=== PATIENT | female | born 1950 | race Caucasian/White ===

== ENCOUNTER 2020-07-29 05:54 | Emergency (ER) | payer MEDICARE ==
[~2020-07-29] VITALS: Ht 154.9 cm; Wt 68.6 kg
[~2020-07-29 05:54] MED LIST: PROC5TAB56 PO
[2020-07-29] MEDS ORDERED: ondansetron/PF 4mg/2ml inj IV ONE (06:15)
[2020-07-29] MEDS ORDERED: normal saline 1000ml 1,000 ML IV ONE (06:15)
[2020-07-29 07:22] LABS: BASOPHILS % (AUTO) 0.3 % (0-1); EOSINOPHILS # (AUTO) 0.2 X10'3 (0-0.9); EOSINOPHILS % (AUTO) 2.1 % (0-6); HEMATOCRIT 42.4 % (35.0-45.0); LYMPHOCYTES # (AUTO) 1.9 X10'3 (1.1-4.8); LYMPHOCYTES % (AUTO) 24.4 % (21-51); MEAN CORPUSCULAR HEMOGLOBIN 33.3 PG (27.0-31.0); MEAN CORPUSCULAR HGB CONC 33.1 g/dL (33.0-36.5); MEAN CORPUSCULAR VOLUME 100.8 FL (78-98); MEAN PLATELET VOLUME 8.5 FL (7.4-10.4); MONOCYTES # (AUTO) 0.8 X10'3 (0-0.9); MONOCYTES % (AUTO) 9.8 % (2-12); NEUTROPHILS % (AUTO) 63.4 % (42-75); PLATELET COUNT 298 X10'3 (140-440); RED BLOOD COUNT 4.21 X10'6 (4.20-5.60); RED CELL DISTRIBUTION WIDTH 13.7 % (11.5-14.5)
[2020-07-29 07:31] LABS: ALANINE AMINOTRANSFERASE 23 U/L (12-78); ALBUMIN 3.7 G/DL (3.4-5.0); ALBUMIN/GLOBULIN RATIO 1.2 (1.1-1.5); ALKALINE PHOSPHATASE 62 IU/L (46-116); ANION GAP 11 (8-16); ASPARTATE AMINO TRANSFERASE 17 U/L (10-37); BILIRUBIN,TOTAL 0.3 MG/DL (0.1-1.0); BLOOD UREA NITROGEN 13 MG/DL (7-18); BUN/CREATININE RATIO 14.3 (6.6-38.0); CALCIUM 9.1 MG/DL (8.5-10.1); CHLORIDE 103 MMOL/L (99-107); CREATININE 0.91 MG/DL (0.40-0.90); GLUCOSE 106 MG/DL (70-104); SODIUM 143 MMOL/L (135-145); TOTAL CARBON DIOXIDE 29.4 MMOL/L (24-32); TOTAL PROTEIN 6.8 G/DL (6.4-8.2); eGFR 61 ML/MIN
[2020-07-29 07:35] LABS: ETHANOL < 0.010 GM/DL (0.0-0.010); TROPONIN I < 0.04 NG/ML (0.0-0.05)
[2020-07-29] MEDS ORDERED: potassium Cl 20 mEq SR tablet PO STA (07:43)
[2020-07-29] MEDS ORDERED: PANT-47 PO (08:36)
[2020-07-29] MEDS ORDERED: POTA20TA19 PO (08:36)
[2020-07-29] MEDS ORDERED: PROM12.512 PO (08:36)
[2020-07-29] MEDS ORDERED: famotidine/PF 10 mg/ml inj IV ONE (08:40)
[2020-07-29] MEDS ORDERED: pantoprazole 40 MG vial IV ONE (08:40)
[2020-07-29 09:31] VITALS: BP 156/84
== END 2020-07-29 09:42 | disposition home or self-care (01) ==
LOC: ER 05:54
DX: R11.10 Vomiting, unspecified (principal); R42 Dizziness and giddiness; F41.9 Anxiety disorder, unspecified; Z72.89 Other problems related to lifestyle; Z79.899 Other long term (current) drug therapy
CPT/HCPCS: 36415; 80053; 80320; 84484; 85025; 96361; 96374; 96375; 99284; C9113; J2405; J3490; J7030

== ENCOUNTER 2020-10-28 08:15 | Emergency (ER) | payer MEDICARE ==
[~2020-10-28] VITALS: Ht 154.9 cm; Wt 69.5 kg
[~2020-10-28 08:15] MED LIST changes: +PANT-47 PO; +PROM12.512 PO
[2020-10-28 09:16] LABS: BASOPHILS % (AUTO) 0.2 % (0-1); EOSINOPHILS # (AUTO) 0.1 X10'3 (0-0.9); EOSINOPHILS % (AUTO) 0.4 % (0-6); HEMATOCRIT 42.1 % (35.0-45.0); LYMPHOCYTES # (AUTO) 2.5 X10'3 (1.1-4.8); LYMPHOCYTES % (AUTO) 17.4 % (21-51); MEAN CORPUSCULAR HEMOGLOBIN 33.6 PG (27.0-31.0); MEAN CORPUSCULAR HGB CONC 33.2 g/dL (33.0-36.5); MEAN PLATELET VOLUME 7.4 FL (7.4-10.4); MONOCYTES # (AUTO) 0.8 X10'3 (0-0.9); MONOCYTES % (AUTO) 5.5 % (2-12); NEUTROPHILS # (AUTO) 11.2 X10'3 (1.8-7.7); NEUTROPHILS % (AUTO) 76.5 % (42-75); PLATELET COUNT 458 X10'3 (140-440); RED BLOOD COUNT 4.17 X10'6 (4.20-5.60); RED CELL DISTRIBUTION WIDTH 13.7 % (11.5-14.5); WHITE BLOOD COUNT 14.6 X10'3 (4.5-11.0)
[2020-10-28 09:25] LABS: CLARITY,URINE CLOUDY (Clear); COLOR,URINE YELLOW (Yellow); GLUCOSE, URINE NEGATIVE (Neg); KETONES,URINE NEGATIVE (Neg); LEUKOCYTE ESTERASE ,URINE TRACE (Neg); NITRITES, URINE NEGATIVE (Neg); OCCULT BLOOD,URINE NEGATIVE (Neg); PH,URINE 5.5 (4.8-8.0); PROTEIN,URINE NEGATIVE (Neg); UA COLLECTION TYPE CLN CATCH MIDSTREAM; UROBILINOGEN,URINE 0.2 E.U/dL (0.2-1.0)
[2020-10-28 09:45] LABS: MUCUS STRANDS MANY /LPF (Neg); SQUAMOUS EPITHELIAL CELL,UR MANY /LPF (FEW)
[2020-10-28 09:46] LABS: BACTERIA,URINE 1+ /HPF (Neg)
[2020-10-28 09:47] LABS: RBC,URINE 0-2 /HPF (0-2)
[2020-10-28 09:54] LABS: ALANINE AMINOTRANSFERASE 20 U/L (12-78); ALBUMIN 4.3 G/DL (3.4-5.0); ALBUMIN/GLOBULIN RATIO 1.3 (1.1-1.5); ALKALINE PHOSPHATASE 64 IU/L (46-116); AMYLASE 43 U/L (25-115); ANION GAP 15 (8-16); ASPARTATE AMINO TRANSFERASE 18 U/L (10-37); BILIRUBIN,TOTAL 0.5 MG/DL (0.1-1.0); BLOOD UREA NITROGEN 11 MG/DL (7-18); BUN/CREATININE RATIO 9.4 (6.6-38.0); CALCIUM 9.8 MG/DL (8.5-10.1); CHLORIDE 100 MMOL/L (99-107); CREATININE 1.17 MG/DL (0.40-0.90); GLUCOSE 113 MG/DL (70-104); LIPASE 162 U/L (73-393); SODIUM 137 MMOL/L (135-145); TOTAL CARBON DIOXIDE 22.4 MMOL/L (24-32); TOTAL PROTEIN 7.6 G/DL (6.4-8.2); eGFR 46 ML/MIN
[2020-10-28] MEDS ORDERED: pantoprazole 40 MG vial IV ONE (09:55)
[2020-10-28] MEDS ORDERED: metoclopramide 5 mg/ml inj IV ONE (09:55)
[2020-10-28] MEDS ORDERED: mag hydrox/Alum hydrox/simeth 30ml oral suspension PO ONE (09:55)
[2020-10-28] MEDS ORDERED: normal saline 1000ml 1,000 ML IV ONE (09:55)
[2020-10-28] MEDS ORDERED: LIDOcaine Viscous 15ml cup MM ONE (09:55)
[2020-10-28] MEDS ORDERED: NITR100C PO (10:00)
[2020-10-28] MEDS ORDERED: iohexol 300mg/ml 100ml inj. ONE (10:40)
[2020-10-28] MEDS ORDERED: diphenhydrAMINE 50 mg/ml inj IV ONE (11:05)
[2020-10-28] MEDS ORDERED: proCHLORperazine 10 MG/2 ml inj IV ONE (11:05)
[2020-10-28] MEDS ORDERED: PANT-47 PO (11:47)
[2020-10-28 11:52] VITALS: BP 137/73
[2020-10-28] MEDS ORDERED: PROC-8 PO (12:19)
== END 2020-10-28 12:20 | disposition home or self-care (01) ==
LOC: ER 08:15
DX: N39.0 Urinary tract infection, site not specified (principal); K29.00 Acute gastritis without bleeding; K57.90 Diverticulosis of intestine, part unspecified, without perforation or abscess without bleeding; R11.2 Nausea with vomiting, unspecified; R10.84 Generalized abdominal pain; F41.9 Anxiety disorder, unspecified; Z72.89 Other problems related to lifestyle; Z79.899 Other long term (current) drug therapy
CPT/HCPCS: 36415; 74177; 80053; 81001; 82150; 83690; 85025; 93005; 96361; 96374; 96375; 99285; C9113; J0780; J1200; J2765; J7030; Q9967

== ENCOUNTER 2020-11-05 09:31 | Emergency (ER) | payer MEDICARE ==
[~2020-11-05] VITALS: Ht 154.9 cm; Wt 67.3 kg
[~2020-11-05 09:31] MED LIST changes: +NITR100C PO; +PROC-8 PO
[2020-11-05 10:39] LABS: CLARITY,URINE SLIGHTLY CLOUDY (Clear); COLOR,URINE YELLOW (Yellow); GLUCOSE, URINE NEGATIVE (Neg); KETONES,URINE TRACE mg/dl (Neg); LEUKOCYTE ESTERASE ,URINE NEGATIVE (Neg); NITRITES, URINE NEGATIVE (Neg); OCCULT BLOOD,URINE TRACE-INTACT (Neg); PROTEIN,URINE NEGATIVE (Neg); UROBILINOGEN,URINE 0.2 E.U/dL (0.2-1.0)
[2020-11-05 10:42] LABS: UA COLLECTION TYPE CLN CATCH MIDSTREAM
[2020-11-05 10:48] LABS: BACTERIA,URINE 3+ /HPF (Neg); MUCUS STRANDS FEW /LPF (Neg); RBC,URINE 0-2 /HPF (0-2); SQUAMOUS EPITHELIAL CELL,UR MANY /LPF (FEW); WBC,URINE 0-4 /HPF (0-4)
[2020-11-05] MEDS ORDERED: ondansetron 4mg rapidly disintigrating tab PO ONE (12:50)
[2020-11-05 13:17] LABS: BASOPHILS % (AUTO) 0.4 % (0-1); EOSINOPHILS # (AUTO) 0.1 X10'3 (0-0.9); EOSINOPHILS % (AUTO) 0.6 % (0-6); HEMATOCRIT 35.7 % (35.0-45.0); LYMPHOCYTES # (AUTO) 0.9 X10'3 (1.1-4.8); LYMPHOCYTES % (AUTO) 9.9 % (21-51); MEAN CORPUSCULAR HEMOGLOBIN 33.7 PG (27.0-31.0); MEAN CORPUSCULAR HGB CONC 33.7 g/dL (33.0-36.5); MEAN PLATELET VOLUME 7.2 FL (7.4-10.4); MONOCYTES # (AUTO) 0.9 X10'3 (0-0.9); MONOCYTES % (AUTO) 9.5 % (2-12); NEUTROPHILS # (AUTO) 7.4 X10'3 (1.8-7.7); NEUTROPHILS % (AUTO) 79.6 % (42-75); PLATELET COUNT 356 X10'3 (140-440); RED BLOOD COUNT 3.57 X10'6 (4.20-5.60); RED CELL DISTRIBUTION WIDTH 13.3 % (11.5-14.5); WHITE BLOOD COUNT 9.3 X10'3 (4.5-11.0)
--- NOTE | 2020-11-05 13:30 | NUR ---
TO CT VIA WC
[2020-11-05 13:33] LABS: ALANINE AMINOTRANSFERASE 16 U/L (12-78); ALBUMIN 3.7 G/DL (3.4-5.0); ALBUMIN/GLOBULIN RATIO 1.3 (1.1-1.5); ALKALINE PHOSPHATASE 59 IU/L (46-116); ANION GAP 12 (8-16); ASPARTATE AMINO TRANSFERASE 16 U/L (10-37); BILIRUBIN,TOTAL 0.4 MG/DL (0.1-1.0); BLOOD UREA NITROGEN 7 MG/DL (7-18); BUN/CREATININE RATIO 8.9 (6.6-38.0); CALCIUM 8.8 MG/DL (8.5-10.1); CHLORIDE 101 MMOL/L (99-107); CREATININE 0.79 MG/DL (0.40-0.90); ETHANOL < 0.010 GM/DL (0.0-0.010); GLUCOSE 101 MG/DL (70-104); POTASSIUM 3.5 MMOL/L (3.5-5.1); SODIUM 137 MMOL/L (135-145); TOTAL CARBON DIOXIDE 24.2 MMOL/L (24-32); TOTAL PROTEIN 6.6 G/DL (6.4-8.2); eGFR 72 ML/MIN
[2020-11-05] MEDS ORDERED: AMOX-422 PO (14:04)
[2020-11-05 14:16] VITALS: BP 159/78
== END 2020-11-05 14:19 | disposition home or self-care (01) ==
LOC: ER 09:32
DX: K58.0 Irritable bowel syndrome with diarrhea (principal); Z79.2 Long term (current) use of antibiotics; Z79.899 Other long term (current) drug therapy; Z72.89 Other problems related to lifestyle
CPT/HCPCS: 36415; 74176; 80053; 80320; 81001; 85025; 99284

== ENCOUNTER 2021-05-12 07:57 | Emergency (ER) | payer MEDICARE ==
[~2021-05-12] VITALS: Ht 154.9 cm; Wt 66.3 kg
--- NOTE | 2021-05-12 08:25 | NUR ---
XRAY AT BEDSIDE
--- NOTE | 2021-05-12 08:31 | NUR ---
FIRST CONTACT WITH PT. REPORTS CHEST PRESSURE X TWO DAYS WITH NAUSEA, DENIES CHEST PAIN. PT STATES SHE IS ANXIOUS, STATES SHE HAS BEEN OUT OF HER ANXIETY MEDS FOR A MONTH. REQUESTING SOMETHING FOR ANXIETY. VSS, MILD DISTERSS D/T ANXIETY. AWAITING MD TENA.
[2021-05-12 08:58] LABS: BASOPHILS % (AUTO) 0.5 % (0-1); EOSINOPHILS % (AUTO) 0.4 % (0-6); HEMATOCRIT 42.9 % (35.0-45.0); HEMOGLOBIN 14.7 g/dl (12.0-16.0); LYMPHOCYTES # (AUTO) 2.2 X10'3 (1.1-4.8); LYMPHOCYTES % (AUTO) 25.7 % (21-51); MEAN CORPUSCULAR HEMOGLOBIN 33.9 PG (27.0-31.0); MEAN CORPUSCULAR HGB CONC 34.3 g/dL (33.0-36.5); MEAN CORPUSCULAR VOLUME 99.1 FL (78-98); MEAN PLATELET VOLUME 7.6 FL (7.4-10.4); MONOCYTES # (AUTO) 0.8 X10'3 (0-0.9); MONOCYTES % (AUTO) 9.5 % (2-12); NEUTROPHILS # (AUTO) 5.6 X10'3 (1.8-7.7); NEUTROPHILS % (AUTO) 63.9 % (42-75); PLATELET COUNT 444 X10'3 (140-440); RED BLOOD COUNT 4.33 X10'6 (4.20-5.60); RED CELL DISTRIBUTION WIDTH 13.2 % (11.5-14.5); WHITE BLOOD COUNT 8.7 X10'3 (4.5-11.0)
--- NOTE | 2021-05-12 09:11 | NUR ---
DR. CORONA AT BEDSIDE
[2021-05-12 09:13] LABS: APTT 25 SECONDS (22-32)
[2021-05-12] MEDS ORDERED: proMETHazine 25mg tablet PO ONE (09:20)
[2021-05-12 09:22] LABS: ALANINE AMINOTRANSFERASE 21 U/L (12-78); ALBUMIN 3.9 G/DL (3.4-5.0); ALBUMIN/GLOBULIN RATIO 1.3 (1.1-1.5); ALKALINE PHOSPHATASE 64 IU/L (46-116); ANION GAP 8 (8-16); ASPARTATE AMINO TRANSFERASE 16 U/L (10-37); BILIRUBIN,TOTAL 0.5 MG/DL (0.1-1.0); BLOOD UREA NITROGEN 11 MG/DL (7-18); BUN/CREATININE RATIO 13.4 (6.6-38.0); CALCIUM 9.1 MG/DL (8.5-10.1); CHLORIDE 99 MMOL/L (99-107); CREATININE 0.82 MG/DL (0.40-0.90); GLUCOSE 108 MG/DL (70-104); POTASSIUM 3.9 MMOL/L (3.5-5.1); SODIUM 134 MMOL/L (135-145); TOTAL CARBON DIOXIDE 26.8 MMOL/L (24-32); TOTAL PROTEIN 6.8 G/DL (6.4-8.2); eGFR 69 ML/MIN
[2021-05-12 09:25] LABS: MAGNESIUM 2.1 MG/DL (1.5-2.4)
[2021-05-12] MEDS ORDERED: normal saline 1000ML IV soln IVB ONE (09:25)
[2021-05-12] MEDS ORDERED: clonazePAM 1mg tablet PO ONE (09:35)
[2021-05-12] MEDS: nitroGLYCERIN 0.2mg/hour patch TD ONE ×2 (09:44→10:23)
--- NOTE | 2021-05-12 09:48 | NUR ---
dr. thompson at bedside. pt refusing nitro patch. fluids started.
--- NOTE | 2021-05-12 10:25 | NUR ---
pt ambulated with steady gait to/from restroom without issue. pt states she 'cannot walk well' however, steady gait noted while walking approx 200 feet around ER.
[2021-05-12] MEDS ORDERED: PROM12.512 PO (10:43)
[2021-05-12 10:50] VITALS: BP 134/88
== END 2021-05-12 10:53 | disposition home or self-care (01) ==
LOC: ER 07:57
DX: R07.89 Other chest pain (principal); F41.9 Anxiety disorder, unspecified; R42 Dizziness and giddiness; R11.0 Nausea; F17.200 Nicotine dependence, unspecified, uncomplicated; F10.20 Alcohol dependence, uncomplicated
CPT/HCPCS: 36415; 71045; 80053; 83735; 83880; 84484; 85025; 85610; 85730; 93005; 96360; 99285; J7030; Q0169

== ENCOUNTER 2022-03-01 07:31 | Emergency (ER) | payer MEDICARE | END 2022-03-01 08:47 | disposition left against medical advice (07) | LOC: ER 07:32 | DX: R07.89 Other chest pain (principal); R51.9 Headache, unspecified; Z53.21 Procedure and treatment not carried out due to patient leaving prior to being seen by health care provider | CPT/HCPCS: 93005 ==